=== PATIENT | male | born 1980 | race Caucasian/White ===

== ENCOUNTER 2021-05-26 14:45 | Emergency (ER) | payer OTHER ==
[2021-05-26 16:17] LABS: ALBUMIN 4.3 g/dL (3.4-5.0); BILIRUBIN - TOTAL 0.4 mg/dL (0.2-1.0); GLOBULIN (CALCULATION) 3.3 g/dL; POTASSIUM 4.3 mmol/L (3.5-5.1); TOTAL PROTEIN 7.6 g/dL (6.4-8.2)
== END 2021-05-26 18:01 | disposition home or self-care (01) ==
LOC: FER 14:45
PROVIDERS: Emergency Medicine
DX: R07.9 Chest pain, unspecified (principal); R00.0 Tachycardia, unspecified; F19.10 Other psychoactive substance abuse, uncomplicated; Z79.899 Other long term (current) drug therapy
CPT/HCPCS: 36415; 71045; 80048; 80053; 84484; 85379; 93005

== ENCOUNTER 2021-07-03 19:15 | Emergency (ER) | payer OTHER ==
[2021-07-03 20:18] LABS: BASOPHIL 0.3 % (0-2); EOSINOPHIL 2.3 % (0-5); HCT 37.1 % (42.0-52.0); HGB 12.9 g/dl (13.2-18.0); LYMPHOCYTE 43.4 % (15-48); MCH 30.9 pg (25.0-31.0); MCHC 34.8 g/dL (32.0-36.0); MCV 88.8 fL (78.0-100.0); MONOCYTE 5.1 % (0-12); MPV 10.9 fL (6.0-9.5); NEUTROPHIL 48.8 % (41-80); NRBC 0; PLT 169 K/uL (150-400); RBC 4.18 M/uL (4.70-6.00); RDW 12.6 % (11.5-14.0); WBC 7.4 K/uL (4.0-10.5)
[2021-07-03 20:30] LABS: BILIRUBIN - TOTAL 0.3 mg/dL (0.2-1.0); BUN/CREAT RATIO (CALC) 15.8 RATIO; CREATININE 0.95 mg/dL (0.67-1.17); GLOBULIN (CALCULATION) 3.3 g/dL; POTASSIUM 3.5 mmol/L (3.5-5.1); TOTAL PROTEIN 7.3 g/dL (6.4-8.2)
== END 2021-07-03 22:22 | disposition home or self-care (01) ==
LOC: FER 19:15
PROVIDERS: Emergency Medicine
DX: R10.9 Unspecified abdominal pain (principal); R07.9 Chest pain, unspecified; F17.200 Nicotine dependence, unspecified, uncomplicated
CPT/HCPCS: 36415; 71275; 80053; 83690; 84484; 85025; 93005; J7030; Q9967